=== PATIENT | male | born 1985 | race Caucasian/White ===

== ENCOUNTER 2016-05-06 13:55 | Emergency (ER) | payer SELFPAY ==
[~2016-05-06] VITALS: Ht 167.6 cm; Wt 80.5 kg
[2016-05-06 15:08] LABS: ADJUSTED CALCIUM 9.9 mg/dL (8.4-10.2); ALBUMIN 4.7 gm/dL (3.5-5.0); BILIRUBIN,TOTAL 0.6 mg/dL (0.0-1.0); C-REACTIVE PROTEIN 0.8 mg/dL (0.0-0.9); CALCIUM 10.5 mg/dL (8.4-10.2); CREATININE, serum 0.7 mg/dL (0.66-1.25); POTASSIUM 4.5 mmol/L (3.4-5.0); TOTAL PROTEIN 8.6 gm/dL (6.4-8.2)
[2016-05-06 15:09] LABS: BASO # 0.1 (0.0-0.2); BASO % 0.4 % (0.0-2.0); GRAN # 20.6 (1.4-6.5); GRAN % 88.3 % (42.2-75.2); HEMATOCRIT 40.1 % (42.0-52.0); HEMOGLOBIN 13.7 g/dl (13.5-18.0); LYMPH # 1.8 (1.2-3.4); LYMPH % 7.9 % (20.0-51.0); MEAN CELL VOLUME 87 fl (80.0-100.0); MEAN CORPUSCULAR HEMOGLOBIN 30 pg (27.0-31.0); MEAN CORPUSCULAR HGB CONC 34 g/dl (33.0-37.0); MEAN PLATELET VOLUME 9.1 fl (7.4-10.4); MONO # 0.7 (0.1-0.6); MONO % 2.8 % (1.7-9.3); PLATELET COUNT 456 K/mm3 (130-400); RED BLOOD COUNT 4.61 M/mm3 (4.20-5.60); REDCELL DISTRIBUTION WIDTH-CV 14.7 % (11.5-14.5)
[2016-05-06 15:12] LABS: WHITE BLOOD COUNT 23.3 K/mm3 (4.8-10.8)
[2016-05-06] MEDS ORDERED: FLAGYL500 MG PO (16:25)
[2016-05-06 16:46] VITALS: BP 126/78; PULSE 78
[2016-05-07] MEDS ORDERED: PHENERGAN 25 TA25 MG PO (03:48)
[2016-05-07] MEDS ORDERED: CIPRO 500MG TA500 MG PO (03:48)
[2016-05-07] MEDS ORDERED: NORCO 325 MG-51 TAB PO (03:48)
== END 2016-05-06 16:47 | disposition home or self-care (01) ==
LOC: COL.ER 13:55
PROVIDERS: Physician Assistant
DX: K52.9 Noninfective gastroenteritis and colitis, unspecified (principal)
CPT/HCPCS: J2405; J2550; J7030; Q9967

== ENCOUNTER 2016-05-07 00:25 | Emergency (ER) | payer SELFPAY ==
[~2016-05-07] VITALS: Ht 167.6 cm; Wt 77.3 kg
[~2016-05-07 00:25] MED LIST: FLAGYL500 MG PO
[2016-05-07 00:26] VITALS: TEMP 97.1
[2016-05-07 01:03] LABS: BASO # 0.1 (0.0-0.2); BASO % 0.3 % (0.0-2.0); EOS % 0.1 % (0-4.0); GRAN # 15.1 (1.4-6.5); GRAN % 79.6 % (42.2-75.2); HEMATOCRIT 37.9 % (42.0-52.0); HEMOGLOBIN 12.9 g/dl (13.5-18.0); LYMPH # 2.9 (1.2-3.4); MEAN CELL VOLUME 87 fl (80.0-100.0); MEAN CORPUSCULAR HEMOGLOBIN 30 pg (27.0-31.0); MEAN CORPUSCULAR HGB CONC 34 g/dl (33.0-37.0); MEAN PLATELET VOLUME 9.1 fl (7.4-10.4); MONO # 0.9 (0.1-0.6); MONO % 4.7 % (1.7-9.3); PLATELET COUNT 416 K/mm3 (130-400); RED BLOOD COUNT 4.36 M/mm3 (4.20-5.60); REDCELL DISTRIBUTION WIDTH-CV 14.7 % (11.5-14.5)
[2016-05-07 01:14] LABS: ADJUSTED CALCIUM 9.5 mg/dL (8.4-10.2); ALBUMIN 4.4 gm/dL (3.5-5.0); BILIRUBIN,TOTAL 0.7 mg/dL (0.0-1.0); C-REACTIVE PROTEIN 1.1 mg/dL (0.0-0.9); CALCIUM 9.8 mg/dL (8.4-10.2); CREATININE, serum 0.66 mg/dL (0.66-1.25); MAGNESIUM 1.9 mg/dL (1.6-2.3); POTASSIUM 3.3 mmol/L (3.4-5.0); TOTAL PROTEIN 8.5 gm/dL (6.4-8.2)
[2016-05-07 01:16] LABS: pH GASTRIC CONTENTS 1
[2016-05-07 01:26] LABS: PH 7 (5-8); SQUAMOUS EPITHELIAL None Seen /hpf; URINE APPEARANCE Clear; URINE BACTERIA None Seen /hpf; URINE BILIRUBIN Negative (NEGATIVE); URINE BLOOD Negative (NEGATIVE); URINE COLOR Yellow; URINE GLUCOSE Negative (NEGATIVE); URINE KETONE 2+ (NEGATIVE); URINE UROBILINOGEN Negative (NEGATIVE); URINE WBC 0-2 /hpf
[2016-05-07] MEDS ORDERED: NORCO 325 MG-51 TAB PO (03:48)
[2016-05-07] MEDS ORDERED: CIPRO 500MG TA500 MG PO (03:48)
[2016-05-07] MEDS ORDERED: PHENERGAN 25 TA25 MG PO (03:48)
[2016-05-07 04:06] VITALS: BP 132/82; PULSE 88
== END 2016-05-07 04:10 | disposition left against medical advice (07) ==
LOC: COL.ER 00:25 → MEDICAL 02:12 → COL.ER 02:12
PROVIDERS: Emergency Medicine
DX: K92.2 Gastrointestinal hemorrhage, unspecified (principal); R10.12 Left upper quadrant pain; R11.10 Vomiting, unspecified; Z53.21 Procedure and treatment not carried out due to patient leaving prior to being seen by health care provider
CPT/HCPCS: C9113; J1170; J2405; J2550; J7030